=== PATIENT | male | born 1995 | race Hispanic/Latino ===

== ENCOUNTER 2025-01-13 17:01 | Emergency (ER) | payer OTHER ==
[~2025-01-13] VITALS: Ht 170.2 cm; Wt 73.8 kg
[2025-01-13] MEDS ORDERED: VIMPAT100 MG PO (17:12)
[2025-01-13] MEDS ORDERED: OXCARBAZEPINE300 MG PO (17:12)
[2025-01-13] MEDS ORDERED: LORazepam 2 MG/ML VIAL IV ONE (17:15)
[2025-01-13 18:03] VITALS: BP 123/82
== END 2025-01-13 19:21 | disposition home or self-care (01) ==
LOC: ED 17:01
DX: G40.409 Other generalized epilepsy and epileptic syndromes, not intractable, without status epilepticus (principal); Z79.899 Other long term (current) drug therapy
CPT/HCPCS: 96374; 96375; 99284-25; J1953; J2060